=== PATIENT | male | born 1995 | race Caucasian/White ===

== ENCOUNTER 2017-11-23 19:02 | Emergency (ER) | payer BC, OTHER ==
[~2017-11-23] VITALS: Ht 170.2 cm; Wt 72.6 kg
--- NOTE | 2017-11-23 20:08 | ED General ---
General Chief Complaint: Bite-Animal/Human/Insect Stated Complaint: POSSIBLE FOREIGN BODY Nursing Triage Note: Pt arrived to ED reporting found a tick embedded on his back [place], walked in [facility] on Wednesday Nursing Sepsis Screen: No Definite Risk Source of Information: Patient Exam Limitations: No Limitations History of Present Illness Date Seen by Provider: November 23, 2017 Time Seen by Provider: 20:08 Initial Comments 22-year-old male patient presents to the emergency department with complaints of an embedded tick to the right back. Reports walking at [facility] on Wednesday. Noticed the tick this evening. Timing/Duration: 3-4 Days Severity: Mild Modifying Factors: worse with Other (denies attempting to remove the tick at home.) Allergies and Home Medications Allergies Coded Allergies: No Known Drug Allergies (Unverified , 11/23/17) Home Medications Doxycycline Hyclate 100 Mg Capsule, 200 MG PO ONCE Prescribed by: BRIANA PINZON on 11/23/172019 Famotidine 20 Mg Tablet, 20 MG PO BID PRN for ITCHING Prescribed by: BRIANA PINZON on 11/23/172019 Ondansetron 8 Mg Tab.rapdis, 8 MG PO Q6H PRN for NAUSEA/VOMITING-1ST LINE Prescribed by: BRIANA PINZON on 11/23/172019 Patient Home Medication List Home Medication List Reviewed: Yes Review of Systems Constitutional: No chills, No diaphoresis, No dizziness, No fever, No malaise EENTM: no symptoms reported Respiratory: no symptoms reported Cardiovascular: no symptoms reported Gastrointestinal: no symptoms reported Musculoskeletal: no symptoms reported Skin: see HPI Psychiatric/Neurological: Denies Headache All Other Systems Reviewed Negative Unless Noted: Yes (Negative excepted noted.) Past Adttyyj-Cxzwak-Yyeejk Hx Patient Social History Alcohol Use: Denies Use Recreational Drug Use: No Smoking Status: Never a Smoker Recent Foreign Travel: No Contact w/Someone Who Travel: No Recent Infectious Disease Expo: No Recent Hopitalizations: No Immunizations Up To Date Tetanus Booster (TDap): Less than 5yrs Seasonal Allergies Seasonal Allergies: No Past Medical History Surgeries: No Respiratory: No Cardiac: No Neurological: No Genitourinary: No Gastrointestinal: No Musculoskeletal: No Endocrine: No HEENT: No Cancer: No Psychosocial: No Integumentary: No Blood Disorders: No Family Medical History Reviewed Nursing Family Hx No Pertinent Family Hx Physical Exam Vital Signs Vital Signs - First Documented 11/23/17 19:30 Temp 98.3 Pulse 68 Resp 20 B/P (MAP) 135/82 (99) Pulse Ox 100 O2 Delivery Room Air Capillary Refill : Less Than 3 Seconds General Appearance: No Apparent Distress, WD/WN Cardiovascular: Normal Peripheral Pulses Back: No Vertebral Tenderness; No Decreased Range of Motion; Other (an embedded [place] tick noted on the right mid back. No evidence of cellulitis noted.) Extremity: Normal Capillary Refill Neurologic/Psychiatric: Alert, Oriented x3, Normal Mood/Affect Skin: Normal Color, Warm/Dry, Other (an embedded [place] tick noted on the right mid back. No evidence of cellulitis noted.) Progress/Results/Core Measures Suspected Sepsis Recent Fever Within 48 Hours: No Infection Criteria Present: None New/Unexplained Altered Menta: No Sepsis Screen: No Definite Risk SIRS Temperature:98.3 Pulse: 68 Respiratory Rate: 20 Blood Pressure 135 /82 Mean: 99 Results/Orders My Orders Orders - BRIANA PINZON Famotidine Tablet (Pepcid Tablet) (11/23/17 20:30) Diphenhydramine Tablet (Benadryl Tablet) (11/23/17 20:30) Vital Signs/I&O 11/23/17 19:30 Temp 98.3 Pulse 68 Resp 20 B/P (MAP) 135/82 (99) Pulse Ox 100 O2 Delivery Room Air Capillary Refill : Less Than 3 Seconds Blood Pressure Mean: 99 Departure Communication (Admissions) [place] tick removed at the time of exam. Plan for discharge to home. Impression Primary Impression: Embedded tick of thoracic region Disposition: 01 HOME, SELF-CARE Condition: Improved Departure-Patient Inst. Decision time for Depature: 20:18 Referrals: NO,LOCAL PHYSICIAN (PCP/Family) Primary Care Physician Patient Instructions: Lyme Disease (DC), Rickettsial Infections (DC), [place] Spotted Fever (DC), [place] (DC) Add. Discharge Instructions: All discharge instructions reviewed with patient and/or family. Voiced understanding. Medications as instructed. Benadryl [id number] as directed for itching or rash. You may use Claritin, Sara, or Zyrtec for breakthrough itching and rash. Shower with antibacterial soap. You may also use topical anti-itch creams if needed. Follow-up with your family practitioner if needed. Return to the emergency department for worsened symptoms, fever, headache, chills, redness, drainage, or any other concerns. Scripts Famotidine (Pepcid) 20 Mg Tablet 20 MG PO BID PRN for ITCHING, #20 TAB 0 Refills Prov: BRIANA PINZON 11/23/17 Ondansetron (Ondansetron Odt) 8 Mg Tab.rapdis 8 MG PO Q6H PRN for NAUSEA/VOMITING-1ST LINE, #10 TAB 0 Refills Prov: BRIANA PINZON 11/23/17 Doxycycline Hyclate (Doxycycline Hyclate) 100 Mg Capsule 200 MG PO ONCE, #2 CAP 0 Refills Prov: BRIANA PINZON 11/23/17 Work/School Note: Local Medical Staff Listing Images Torso/Trunk 1 - Other-See Progress Note (tick embedded.) BRIANA PINZON November 23, 2017 20:08
[2017-11-23] MEDS ORDERED: FAMO-119 PO (20:20)
[2017-11-23] MEDS ORDERED: ONDA8TAB13 PO (20:20)
[2017-11-23] MEDS ORDERED: DOXY100C2 PO (20:20)
[2017-11-23] MEDS ORDERED: FAMOTIDINE 20 MG (PEPCID) TABLET PO ONE (20:30)
[2017-11-23] MEDS ORDERED: diphenhydrAMINE 25 MG TAB (BENADRYL) PO ONE (20:30)
[2017-11-23 20:35] VITALS: BP 135/82
== END 2017-11-23 20:35 | disposition home or self-care (01) ==
LOC: ER 19:05
DX: S20.461A Insect bite (nonvenomous) of right back wall of thorax, initial encounter (principal); W57.XXXA Bitten or stung by nonvenomous insect and other nonvenomous arthropods, initial encounter
CPT/HCPCS: 99283